=== PATIENT | female | born 1975 | race Caucasian/White ===

== ENCOUNTER 2023-08-03 12:30 | Outpatient (RCR) | payer OTHER, SELFPAY ==
--- NOTE | 2023-05-19 10:42 | OTOPEVAL1 ---
Assessment and note entered by Darío Dutta, OTR/Saida, CHT Evaluation Information Diagnosis Right lateral epicondylitis Subjective Information Patient reports gradual onset of right elbow pain since February 2023. She is right handed. 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 Reports difficulties with opening jars, carrying objects, lifting, or yoga. Reported Pain Level Pain Score - (R) elbow 2/10: At rest 8/10: At worst Assessment OT Clinical Summary Patient referred to OT with dx of right lateral epicondylitis. She presents today in a tennis elbow band and reports she received an injection a week ago. She presents with tenderness, pain, and weakness that is limiting return to UE use for ADLs and exercise. Skilled OT indicated to reduce pain and maximize functional right UE use via therapeutic exercise, manual therapy, modalities, and HEP instruction and progression. Plan of Care Interventions Therapeutic Exercise,Manual Therapy,Therapeutic Activities,Hot Pack/Cold Pack,Check Out for Orthotic/Pr,Ultrasound,Paraffin OT Services Indicated Yes Treatment Frequency and 1x/week for 4 weeks Duration These treatments will address the objective and functional deficits as defined above. The patient will be advanced safely and appropriately in order for the patient to progress towards his/her prior level of function. Additional exercises will be introduced and as well as a comprehensive home exercise program upon discharge, if needed, ?to ensure carryover of functional gains achieved in the clinic. This treatment plan has been reviewed and agreement upon by the patient.
--- NOTE | 2023-05-26 08:36 | PCOTNOTE ---
Patient's appointment yesterday, 05/25/23, was cancelled due to inclement weather.
--- NOTE | 2023-06-17 08:27 | OTOPEVAL1 ---
Assessment and note entered by Darío Dutta, JERMAN/Saida, CHT Progress Update 06/17/23 Assessment Status Progress Diagnosis Right lateral epicondylitis Subjective Information Patient reports reduced pain in the right elbow. States she no longer needs to wear the elbow brace during ADLs. States with light ADLs her pain is 0 /10. She has progressed to 2 lb. weights for wrist strengthening. She continues to modify her yoga routine. Overall progress with being able to open jars and carrying objects with less pain. Quickdash improved from 61.4% to 11.4% Reported Pain Level Pain Score 1/10 at rest 2/10 at worst Assessment OT Clinical Summary Patient referred to OT with dx of right lateral epicondylitis. She presents today for progress update after a month of therapy. Patient is making great progress. She no longer is wearing the elbow band and is using her arm for ADLs without pain. Continues to have pain with gripping the therapy putty. She continues to have tenderness at the elbow and common extensors. Continued skilled OT indicated to reduce pain and maximize functional right UE use via therapeutic exercise, manual therapy, modalities, and HEP instruction and progression. Plan of Care Interventions Therapeutic Exercise,Manual Therapy,Therapeutic Activities,Hot Pack/Cold Pack,Check Out for Orthotic/Pr,Ultrasound,Paraffin OT Services Indicated Yes Treatment Frequency and 1x/week for 3 visits Duration These treatments will address the objective and functional deficits as defined above. The patient will be advanced safely and appropriately in order for the patient to progress towards his/her prior level of function. Additional exercises will be introduced and as well as a comprehensive home exercise program upon discharge, if needed, ?to ensure carryover of functional gains achieved in the clinic. This treatment plan has been reviewed and agreement upon by the patient.
--- NOTE | 2023-07-09 10:21 | OTOPPROG ---
Assessment and note entered by Darío Dutta, JERMAN/Saida, CHT Progress Update 07/09/23 Assessment Status Progress Diagnosis Right lateral epicondylitis Subjective Information Patient reports fluctuating pain in the elbow. She was typically functioning with no pain during light tasks and lately it's been increased to 1/10 . 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 Overall she reports she is doing better, but the residual pain is limiting. Assessment OT Clinical Summary Patient referred to OT with dx of right lateral epicondylitis. She presents today with slight increase in elbow irritation after having a busy week last week, causing a flair up. Pain levels remain low, but she has had to scale back a little to wearing the brace more often. Overall she is making good progress. Continued skilled OT indicated to reduce pain and maximize functional right UE use via therapeutic exercise, manual therapy, modalities, and HEP instruction and progression. Plan of Care Interventions Therapeutic Exercise,Manual Therapy,Therapeutic Activities,Hot Pack/Cold Pack,Check Out for Orthotic/Pr,Ultrasound,Paraffin OT Services Indicated Yes Treatment Frequency and 1x/week for 3 visits Duration These treatments will address the objective and functional deficits as defined above. The patient will be advanced safely and appropriately in order for the patient to progress towards his/her prior level of function. Additional exercises will be introduced and as well as a comprehensive home exercise program upon discharge, if needed, ?to ensure carryover of functional gains achieved in the clinic. This treatment plan has been reviewed and agreement upon by the patient.
--- NOTE | 2023-07-09 10:21 | OPREHPOC ---
Outpatient Therapy Plan of Care This is a Multidisciplinary Plan of Care that may contain components documented by all disciplines (PT, OT, and ST.) OT Problem 1 OT Problem #1 Knowledge Deficit OT Goal 1 Goal 1. Patient to be independent with instructed materials. ---OT POC UPDATE 06/17/23--- 1. Met, continue as HEP is progressed ---OT POC UPDATE 07/09/23--- 1. Met, continues as HEP is progressed Target Visit 11 OT Problem 2 OT Problem #2 Pain OT Goal 1 Goal 1. Patient to report reduced pain in the right elbow, noting times of 0/10 pain. 2. Patient to be independent with non-medication pain management: - rest - heat/ice - ROM/stretching ---OT POC UPDATE 06/17/23--- 1. Met, progress to no pain with HEP 2. Met ---OT POC UPDATE 07/09/23--- 1. Flair up this week, continue to address pain 2. Met Target Visit 8 OT Problem 3 OT Problem #3 Impaired Strength OT Goal 1 Goal 1. Patient to improve functional strength as demonstrated by being able to complete wrist strengthening with 2 lb. free weight x20 reps without pain. ---OT POC UPDATE 06/17/23--- 1. Progressing, continue goal ---OT POC UPDATE 07/09/23--- 1. Progressing, continue goal Target Visit 11
--- NOTE | 2023-08-03 13:07 | OTOPDC ---
Assessment and note entered by Darío Dutta, OTR/L, CHT OT D/C Summary 08/03/23 Diagnosis Right lateral epicondylitis Subjective Information Patient reports progressing to no pain with light activities. Heavier tasks, such as gardening and scrubbing the shower, her pain increases to 2-3/10 . Overall her pain is reduced from 8/10 with ADLs. She reports good compliance with HEP and activity modifications. She has scaled back from wearing her tennis elbow brace at all time to just with heavier tasks sometimes . She has progressed to 5/5 wrist strength and is completing wrist strengthening HEP with 2 lb. free weights. 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 on the right. Left measuring 57 lbs. 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 Reported Pain Level Pain Score 0: Self Report Additional Pain Score Comments No pain at rest, this improved from having a constant 1/10 at rest. Pain at worst continues to get up to 3-4/10 with heavy tasks. Assessment OT Clinical Summary Patient referred to OT with dx of right lateral epicondylitis. She presents today reporting reduced pain to 0/10 at rest and with light ADLs. She continues to have pain with gripping tasks, but overall reports things are trending in the right direction. 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 She demonstrates excellent understanding of her HEP. Recommending continued compliance with HEP for optimal results. She verbalizes excellent understanding of all materials. D/C today with patient independent with HEP.
== END 2023-08-03 14:44 | disposition home or self-care (01) ==
LOC: ANHOT 12:30
PROVIDERS: PCP Family Medicine; Visit Provider Nurse Practitioner Family
DX: M77.11 Lateral epicondylitis, right elbow (principal)
CPT/HCPCS: 97018; 97035; 97110; 97140; 97165

== ENCOUNTER 2024-01-14 10:40 | Outpatient (CLI) | payer OTHER, SELFPAY ==
--- NOTE | ~2024-01-14 | US_ITS ---
EXAMINATION: US pelvic complete w TV DATE: 01/14/2024 11:02 INDICATION: Pelvic and perineal pain. TECHNIQUE: Multiple transabdominal and transvaginal sonographic images of the pelvis were obtained. COMPARISON: None. FINDINGS: TRANSABDOMINAL ULTRASOUND: The uterus measures 6.7 x 3.4 x 4.4 cm. There is no free fluid in the pelvis. TRANSVAGINAL ULTRASOUND: The endometrial complex measures 6 mm in thickness. The right ovary measures 3.2 x 3.0 x 1.8 cm. The left ovary measures 1.6 x 1.4 x 1.6 cm. There is normal vascular flow in the ovaries. IMPRESSION: 1. Normal pelvis. Reviewed, dictated and finalized at location A. IMPRESSION: 1. Normal pelvis.
== END 2024-01-14 10:41 | disposition home or self-care (01) ==
LOC: MICIMG 10:41
PROVIDERS: PCP Family Medicine; Visit Provider Nurse Practitioner Obstetrics & Gynecology
DX: R10.2 Pelvic and perineal pain (principal)
CPT/HCPCS: 76830; 76856

== ENCOUNTER 2024-06-28 07:05 | Outpatient (CLI) | payer OTHER, SELFPAY ==
--- NOTE | ~2024-06-28 | MR_ITS ---
EXAMINATION: MR elbow RT wo con DATE: 06/28/2024 07:36 INDICATION: Right elbow pain TECHNIQUE: Magnetic resonance imaging (MRI) of the right elbow was performed without intravenous cont rast. Sequences included coronal, axial, and sagittal PD-weighted FS FSE and coronal, axial, and sagi ttal PD-weighted FSE. COMPARISON: None FINDINGS: Osseous/other: Normal alignment. Normal marrow signal with no marrow edema, fracture, osteochondral lesion or abnor mal marrow replacing process. 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 Tendons: Triceps, biceps brachii and brachialis tendons are normal. Common flexor tendon wad is normal. Mild tendinopathy with small partial-thickness tear at the central lateral epicondylar origin of the commo n extensor tendon wad. The region of the tear measures approximately 4 mm cranial to caudal and 3 mm AP. Ligaments: The medial and lateral collateral ligament complexes are normal. Cubital tunnel: Cubital tunnel is unremarkable with normal signal and caliber of the ulnar nerve. Fluid: Physiologic amount of fluid the elbow joint. IMPRESSION: 1. Mild tendinopathy and small partial-thickness tear at the lateral epicondylar origin of the common extensor tendon wad. Reviewed, dictated and finalized at location B. 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 Mild tendinopathy and small partial-thickness tear at the lateral epicondyla r origin of the common extensor tendon wad.
== END 2024-06-28 07:06 | disposition home or self-care (01) ==
PROVIDERS: PCP Family Medicine; Visit Provider Nurse Practitioner Family
DX: M77.11 Lateral epicondylitis, right elbow (principal)
CPT/HCPCS: 73221

== ENCOUNTER 2024-08-31 08:00 | Outpatient (RCR) | payer OTHER, SELFPAY ==
--- NOTE | 2024-08-03 09:58 | OPREHPOC ---
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
--- NOTE | 2024-08-03 09:58 | PTOPEVAL1 ---
Assessment and note entered by Lizzie Waller, PT Evaluation Information Assessment Status Evaluation ICD-10 Condition Codes (PT) Pain in right elbow M25.521 Other ICD-10 Condition Codes ( M77.11 R elbow lateral epicondylitis PT) Onset Feb 2023 Subjective Information original onset of pain Feb 2023; had flare up in Mar 2024--started lifting weights for fitness and more pain; had MRI- small partial tear of lateral epicondyle saw ortho, have had 3 injections-- last one did not help pain going to try conservative and avoid surgery if able to using R wrist splint to decrease use of arm and it is helping; is R hand dominant previous OT treatment for this at initial injury- helped; is continuing to do the ice but not able to do the exercises due to more pain 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 She is not working due to elbow pain. DASH self assessment of 45% limitation in activity level. Decreased sleeping and activity level with her dominant arm due to pain. 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 Plan of Care Interventions Hot Pack/Cold Pack,Manual Therapy,Neuro Re- education,Patient/Caregiver Education,Therapeutic Activities,Therapeutic Exercise,Ultrasound,Other Other Interventions dry needling--pt agreed to it; kinesiotape PT Services Indicated Yes Treatment Frequency and 1-2x/wk for 5 visits Duration These treatments will address the objective and functional deficits as defined above. The patient will be advanced safely and appropriately in order for the patient to progress towards his/her prior level of function. Additional exercises will be introduced and as well as a comprehensive home exercise program upon discharge, if needed, ?to ensure carryover of functional gains achieved in the clinic. This treatment plan has been reviewed and agreement upon by the patient.
--- NOTE | 2024-08-31 08:54 | OPREHPOC ---
Outpatient Therapy Plan of Care This is a Multidisciplinary Plan of Care that may contain components documented by all disciplines (PT, OT, and ST.) PT Problem 1 PT Problem #1 Knowledge Deficit PT Goal 1 Goal / Goal Update *independent with HEP 08-31-24 d/c goal met Target Visit 5 Progress Met PT Problem 2 PT Problem #2 Pain PT Goal 1 Goal / Goal Update * pt report pain rating of 3/10 at worst 08-31-24 d/c goal not met, rating 5/10 at worst Target Visit 5 Progress Not Met PT Problem 3 PT Problem #3 Impaired Strength PT Goal 1 Goal / Goal Update increase strength of R UE to increase use of her dominant arm for home and self care activities : 1* 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
--- NOTE | 2024-08-31 08:56 | PTOPDC ---
Assessment and note entered by Lizzie Waller, PT Assessment Status Discharge ICD-10 Condition Codes (PT) Pain in right elbow M25.521 Other ICD-10 Condition Codes ( M77.11 R elbow lateral epicondylitis PT) Onset Feb 2023 Subjective Information therapy has helped a little, but still having pain ; have been doing the exercises, but have to be careful, if I do too much it hurts; have not really been doing much with my R arm to help it rest; the sleeve helps; Reported Pain Level Pain Score Self Report Additional Pain Score Comments pain range in the past week: 2-5/10; increase pain: use L arm decrease pain: rest, compression sleeve; ice, home stim unit;biofreeze cream; no longer use the wrist brace; sleep without awakening due to elbow pain; ultrasound and taping not really make a difference Assessment PT Clinical Summary Teri has received 5 PT sessions. 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 The goals were partially met. Discharge PT services. She is to continue to perform the HEP and monitor pain with activity. And to make a follow up appointment with They had discussed option for surgery at her last appointment. Plan of Care PT Services Indicated No
== END 2024-08-31 09:21 | disposition home or self-care (01) ==
LOC: ANHPT 08:00
PROVIDERS: PCP Family Medicine; Visit Provider Nurse Practitioner Family
DX: M77.11 Lateral epicondylitis, right elbow (principal)
CPT/HCPCS: 97035; 97110; 97140; 97161

== ENCOUNTER 2024-10-12 13:34 | Outpatient (CLI) | payer OTHER, SELFPAY ==
[2024-10-12 14:11] LABS: Basophils Percent Auto 0.6 % (0.2-1.2); Eosinophils Absolute Auto 0.1 K/mm3 (0-0.3); Eosinophils Percent Auto 1.3 % (0-4.4); Hemoglobin 12.4 g/dL (12.0-15.0); Immature Granulocyte Absolute 0.02 K/mm3 (0.00-0.031); Immature Granulocyte Percent A 0.4 % (0-0.5); Immature Reticulocyte Fraction 10.3 % (3.0-15.9); Lymphocytes Absolute Auto 2.29 K/mm3 (0.9-3.2); Lymphocytes Percent Auto 43.4 % (18.3-44.2); Mean Corpuscular HGB Conc 32.6 g/dl (32-36); Mean Corpuscular Hemoglobin 31.8 pg (26-34); Mean Corpuscular Volume 97.4 fl (80-100); Mean Platelet Volume 9.6 fl (7.4-10.4); Monocytes Absolute Auto 0.5 K/mm3 (0.1-0.6); Monocytes Percent Auto 9.3 % (2.6-8.5); Neutrophils Absolute Auto 2.4 K/mm3 (1.3-6.7); Platelet Count Result 280 k/mm3 (150-375); Red Cell Distribution Width 12.7 % (11.5-14.5); Reticulocyte Hemoglobin Conten 35.8 pg (28.2-36.6); Reticulocytes Absolute 0.06 10^6/uL (0.02-0.10); White Blood Count 5.3 K/mm3 (4.5-10.0)
[2024-10-12 15:22] LABS: Folic Acid > 20.0 ng/mL (2.76->20)
--- OUTSIDE RECORDS SUMMARY | 2024-10-12 15:51 | XMS_ITS | Clinical Summary ---
Author Organization [facility] Office Center Address [address] [place] [address] Care Team Providers Care Power Distribution Engineer Name Role Phone Sharyn Sanders DO Primary Care Provider + Saeid Mercado MD Unavailable [phone] Allergies No known active allergies Medications escitalopram (LEXAPRO) 10 mg tablet Take 1 tablet (10 mg total) by mouth daily 12/09/2018 Active valACYclovir (VALTREX) 1 gram tablet Take 2 tablets (2,000 mg total) by mouth 2 (two) times a day as needed 07/19/2012 Active fluticasone propionate (FLONASE) 50 mcg/actuation nasal spray SHAKE LIQUID AND USE 2 SPRAYS IN EACH NOSTRIL DAILY DIRECTED 2022 Active TESTOSTERONE TRANSDERM 03/03/2023 Active testosterone 12.5 mg/ 1.25 gram (1 %) gel in metered-dose pump Place on the skin Active Arazlo 0.045 % lotion 03/23/2023 Active progesterone (PROMETRIUM) 100 mg capsule Take 1 capsule (100 mg total) by mouth daily 02/20/2023 Active Active Problems Problem Noted Date Diagnosed Date 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 Orthopaedic Surgery [address] [place] [address] 12th [place] [address] [place] [address] Alma Santiago MD Right lateral epicondylitis (Primary Dx); Partial tear of common extensor tendon of right elbow; Right elbow pain 10/10/2024 8:11 AM CDT - 10/10/2024 11:59 PM CDT Hospital Encounter [facility] [address] [place] [address] Arrived Discharge Disposition: Discharge to home or self care 10/10/2024 8:00 AM CDT - 10/10/2024 11:59 PM CDT Hospital Encounter [facility]) [address] [place] [address] Right elbow pain Discharge Disposition: Discharge to home or self care 10/10/[address] [facility] Nephrology at [address] [place] [address] Luis Manuel Devries 10/10/2024 Telephone [facility] Orthopaedic Surgery [address] [place] [address] 2nd [address] [place] [address] Alma Santiago MD from Last 3 Months Medical History Medical History Date Comments Alport syndrome BARBI (generalized anxiety disorder) Family History Medical History Relation Name Comments Anxiety disorder Brother Colitis Brother Alport syndrome Father Cancer Maternal Grandfather Anxiety disorder Mother Colitis Mother Depression Mother Diabetes Mother Heart disease Mother Cancer Paternal Grandfather Alport syndrome Sister Panic disorder Sister Relation Name Status Comments Brother Father Maternal Grandfather Mother Paternal Grandfather Sister Social History Tobacco Use Types Packs/Day Years Used Date Smoking Tobacco: Never Smokeless Tobacco: Never Tobacco Cessation:Counseling Given: Not Answered Alcohol Use Standard Drinks/Week Comments Yes 0 (1 standard drink = 0.6 oz pur e alcohol) socially Comments Unknown Sex and Gender Information Value Date Recorded Sex Assigned at Not on file Legal Sex Female 7:15 PM CHIP MUCKER Gender Identity Female 03/07/2020 3:31 PM CHIP MUCKER Sexual Orientation Straight 03/07/2020 3: 31 PM CHIP MUCKER Obstetrics History Last Filed Vital Signs Vital Sign Reading Time Taken Comments Blood Pressure 114/70 04/17/2023 8:56 AM CHIP MUCKER Pulse 78 04/17/2023 8:56 AM CHIP MUCKER Temperature 36.2 C (97.1 F) 04/17/2023 8:56 AM CHIP MUCKER Respiratory Rate - - Oxygen Saturation - - Inhaled Oxygen Concentration - - Weight 62.1 kg (137 lb) 10/10/2024 11:49 AM CDT Height 157.5 cm (5' 2) 10/10/2024 11:49 AM CDT Body Mass Index 25.06 10/10/2024 11:49 AM CDT Plan of Treatment Health Maintenance Due Date Last Done Comments Cervical Cancer Screening 1975 Colon Cancer Screening-Colonoscopy 1975 Depression Screening 1975 Hepatitis C Screening 1975 Hepatitis B Screening 1993 Regular Well Visit/Exam 18-64 1993 DTaP/Tdap/Td Vaccine (2 - Td or Tdap) 01/31/2021 01/31/2011, 07/20/2000 Covid-19 Vaccine (3 - season) 2024 03/01/2021, 07/07/2020 Breast Cancer Screening-Mammogram 07/05/2024 07/06/2023, 07/06/2023, 06/04/2022, Additional history exists Influenza Vaccine (Season Ended) 2025 05/09/2022, 03/01/2021, 02/13/2020, Additional history exists Pneumococcal vaccine <65 Aged Out No longer eligible based on patient's age to complete this topic Procedures Procedure Name Priority Date/Time Associated Diagnosis Comments ALBUMIN CREATININE RATIO, URINE Routine 10/11/2024 9:01 AM CDT Hereditary nephropathy (Alport's) Asymptomatic microscopic hematuria MSK MR OUTSIDE REFERENCE Routine 10/10/2024 8:11 AM CDT XR ELBOW RIGHT 3 OR MORE VIEWS Schedule Routine, Read Routine (OP Routine) 10/10/2024 8:09 AM CDT Right elbow pain from Last 3 Months Results * Albumin Creatinine Ratio, Urine (10/11/2024 9:01 AM CDT) Creatinine, ur 36 20 - 275 mg/dL [facility] Microalbumin, ur 0.5 See Note: mg/dL [facility] Comment: Reference Range: Reference Range Not established Microalbumin/creat ratio 14 <30 mg/g creat [facility] Comment: The ADA defines abnormalities in albumin excretion as follows: Albuminuria Category Result (mg/g creatinine) Normal to Mildly increased <30 Moderately increased 30-299 Severely increased > OR = 300 The ADA recommends that at least two of three specimens collected within a 3-6 month period be abnormal before considering a patient to be within a diagnostic category. Urine 10/11/2024 9:01 AM CDT 10/11/2024 9:02 AM CDT us Seaid Mercado MD LAB URINE ORDERABLES Final Re sult Performing Organization Address [facility] Co de Phone Number [employer] [facility] [address] [place] [address] * MSK MR Outside Reference (10/10/2024 8:11 AM CDT) Impressions [facility]_P[facility] - 10/10/2024 8:11 AM CDT These images are for Reference purposes only and have not been reviewed by [facility] Radiology. There will be no report generated by a [facility] Radiologist. Narrative [facility] - 10/10/2024 8:11 AM CDT EXAMINATION: Images For Reference Purposes Only us Alma Santiago MD IMG MRI PROCEDURES Fi nal Result Performing Organization Address [facility] Co de Phone Number [facility] * XR Elbow Right 3 or More Views (10/10/2024 8:09 AM CDT) Anatomical Region Laterality Modality Upper Extremities, Elbow Right Compute d Radiography 10/10/2024 8:25 AM CDT Impressions 10/10/2024 8:25 AM CDT Normal right elbow radiographs. Electronically signed by: Lawrence Vasques M.D. Narrative 10/10/2024 8:25 AM CDT EXAMINATION: XR ELBOW RIGHT 3 OR MORE VIEWS HISTORY: Right elbow pain FINDINGS: 3 views of the right elbow were performed without prior comparison. Alignment of the elbow is normal. There is no elbow joint effusion. There is no acute fracture. Joint spaces are normal. Procedure Note Lawrence Vasques MD PhD - 10/10/2024 EXAMINATION: XR ELBOW RIGHT 3 OR MORE VIEWS HISTORY: Right elbow pain FINDINGS: 3 views of the right elbow were performed without prior comparison. Alignment of the elbow is normal. There is no elbow joint effusion. There is no acute fracture. Joint spaces are normal. IMPRESSION: Normal right elbow radiographs. Electronically signed by: Lawrence Vasques M.D. Alma Santiago MD IMG XR PROCEDURES Fin al Result from Last 3 Months Insurance [employer] Care Teams Power Distribution Engineer Relationship Specialty Start Date End Date Sharyn Sanders DO [facility] [facility] [address] [place] [address] PCP - General Family Medicine 08/31/24 Saeid Mercado MD [address] [facility] [address] [place] [address] Nephrology 10/10/24
--- OUTSIDE RECORDS SUMMARY | 2024-10-12 15:51 | XMS_ITS | Clinical Summary ---
Author Organization [facility] Address [address] [place] [address] Care Team Providers Care Machine Molder Squeeze Name Role Phone Stephanie Petersen Primary Care Provider [phone] Willie Tillman MD Unavailable [phone] Source Comments [facility],non-owned Affiliates and Associated Physician Practices is amultiple site organization consisting of ambulatory clinics and hospital sitesin [place], [place], [place] and [place]. This disclosure is being madepursuant to the Care Everywhere program and may not contain all information available regarding this patient. Last updated 18.[facility] Allergies No known active allergies Medications * Be aware that medications may not be up to date on this document. Alwaysverify current medications with the patient. spironolactone (ALDACTONE) 100 MG tablet Take 1 tablet by mouth once daily 03/22/2017 Active escitalopram (LEXAPRO) 10 MG tablet Take 1 tablet by mouth once daily 02/07/2017 Active Norethin Myron-Eth Estrad-FE (MINASTRIN 24 FE PO) Active Social History Tobacco Use Types Packs/Day Years Used Date Smoking Tobacco: Never Smokeless Tobacco: Never Comments Unknown Sex and Gender Information Value Date Recorded Sex Assigned at Not on file Legal Sex Female 9:26 AM SILK WEAVER Gender Identity Not on file Sexual Orientation Not on file Last Filed Vital Signs Vital Sign Reading Time Taken Comments Blood Pressure - - Pulse - - Temperature - - Respiratory Rate - - Oxygen Saturation - - Inhaled Oxygen Concentration - - Weight 54.4 kg (120 lb) 04/07/2017 2:08 PM SILK WEAVER Height 160 cm (5' 3) 04/07/2017 2:08 PM SILK WEAVER Body Mass Index 21.26 04/07/2017 2:08 PM SILK WEAVER Plan of Treatment Health Maintenance Due Date Last Done Comments COLOGUARD (AGES 45-75) - COL ON CA SCREENING 1975 COLON MONITORING 1975 COLONOSCOPY - COLON CA SCREENING 1975 CT COLONOGRAPHY - COLON CA SCREENING 1975 Colorectal Cancer Screening 1975 FIT - COLON CA SCREENING 1975 FLEX SIG - COLON CA SCREENING 1975 LIPID TESTING 1975 MAMMOGRAM 1975 HIV SCREENING 1990 HEPATITIS C SCREENING 03/19/1993 DTAP/TDAP/TD VACCINES (1 - Tdap) 1994 HEPATITIS B VACCINE (1 of 3 - 19+ 3-dose series) 1994 COVID-19 VACCINE ( - 2023-2 5 season) 2024 DEPRESSION SCREENING 05/04/2024 INFLUENZA VACCINE (Season Ended) 2025 ZOSTER VACCINE (1 of 2) 2025 HIB VACCINE Aged Out No longer eligi ble based on patient's age to complete this topic HPV VACCINE Aged Out No longer eligi ble based on patient's age to complete this topic MENINGOCOCCAL (Group B) VACC INE SHARED DECISION-MAKING Aged Out No longer eligibl e based on patient's age to complete this topic MENINGOCOCCAL GROUPS A/C/Y/W VACCINE Aged Out No longer eligible b ased on patient's age to complete this topic Insurance [employer] Care Teams Machine Molder Squeeze Relationship Specialty Start Date End Date Stephanie Petersen DO [address] [place] [address] PCP - General Family Medicine 04/07/17 [place] [address] [address] [address] Orthopedic Surgery 04/07/17
--- OUTSIDE RECORDS SUMMARY | 2024-10-12 15:51 | XMS_ITS | Encounter Summary ---
Author Organization [facility] Healthcare Address [address] [place] [address] Care Team Providers Care Director Digital Catalogue Name Role Phone Sharyn Sanders DO Primary Care Provider + Saeid Mercado MD Unavailable [phone] Reason for Visit * MRI/CAT/PET Scan (Routine) - Pending Review Specialty Diagnoses / Procedures Referred By Deena t Referred To Contact Procedures MSK MR Outside Reference Alma Santiago MD [address] [facility] [address]12A [place] [address] Phone: tel: fax: Referral ID Status Reason Start Date Expiration Date V isits Requested Visits Authorized [id number] Pending Review 10/10/2024 11/09/2025 1 1 Encounter Details Date Type Department Care Team (Latest Contact Info) Description 10/10/2024 8:11 AM CDT - 10/10/2024 11:59 PM CDT Hospital Encounter [facility] [address] [place] [address] Arrived Discharge Disposition: Discharge to home or self care Social History Tobacco Use Types Packs/Day Years Used Date Smoking Tobacco: Never Smokeless Tobacco: Never Alcohol Use Standard Drinks/Week Comments Yes 0 (1 standard drink = 0.6 oz pur e alcohol) socially Comments Unknown Sex and Gender Information Value Date Recorded Sex Assigned at Not on file Legal Sex Female 7:15 PM WAX PATTERN REPAIRER Gender Identity Female 03/07/2020 3:31 PM WAX PATTERN REPAIRER Sexual Orientation Straight 03/07/2020 3: 31 PM WAX PATTERN REPAIRER documented as of this encounter Medications at Time of Discharge Arazlo 0.045 % lotion 03/23/2023 escitalopram (LEXAPRO) 10 mg tablet Take 1 tablet (10 mg total) by mouth daily 12/09/2018 fluticasone propionate (FLONASE) 50 mcg/actuation nasal spray SHAKE LIQUID AND USE 2 SPRAYS IN EACH NOSTRIL DAILY DIRECTED 2022 progesterone (PROMETRIUM) 100 mg capsule Take 1 capsule (100 mg total) by mouth daily 02/20/2023 testosterone 12.5 mg/ 1.25 gram (1 %) gel in metered-dose pump Place on the skin TESTOSTERONE TRANSDERM 03/03/2023 valACYclovir (VALTREX) 1 gram tablet Take 2 tablets (2,000 mg total) by mouth 2 (two) times a day as needed 07/19/2012 documented as of this encounter Discharge Disposition Disposition Code Departure Means Destination Discharge to home or self care documented in this encounter Plan of Treatment Not on file documented as of this encounter Procedures Procedure Name Priority Date/Time Associated Diagnosis Comments MSK MR OUTSIDE REFERENCE Routine 10/10/2024 8:11 AM CDT documented in this encounter Results * MSK MR Outside Reference (10/10/2024 8:11 AM CDT) Impressions [facility] - 10/10/2024 8:11 AM CDT These images are for Reference purposes only and have not been reviewed by [facility] Radiology. There will be no report generated by a [facility] Radiologist. Narrative [facility] - 10/10/2024 8:11 AM CDT EXAMINATION: Images For Reference Purposes Only us Alma Santiago MD IMG MRI PROCEDURES Fi nal Result [facility] documented in this encounter Visit Diagnoses Not on filedocumented in this encounter Care Teams Director Digital Catalogue Relationship Specialty Start Date End Date Sharyn Sanders DO [address] [place] [address] [address] [place] [address] PCP - General Family Medicine 08/31/24 Saeid Mercado MD [address] [facility] [address] [place] [address] Nephrology 10/10/24 documented as of this encounter
--- OUTSIDE RECORDS SUMMARY | 2024-10-12 15:51 | XMS_ITS | Encounter Summary ---
Author Organization [facility] Healthcare Address [address] [place] [address] Care Team Providers Care Lime Sludge Mixer Name Role Phone Sharyn Sanders DO Primary Care Provider + Saeid Mercado MD Unavailable [phone] Reason for Referral * Diagnostic Imaging (Routine) - Closed Specialty Diagnoses / Procedures Referred By Contac t Referred To Contact Diagnoses Right elbow pain Procedures XR Elbow Right 3 or More Views Alma Santiago MD [address] [employer] [address] [place] [address] Phone: tel: fax: [address] [address] Referral ID Status Reason Start Date Expiration Date Visits Re quested Visits Authorized [id number] Closed 09/29/2024 10/29/2025 1 1 Reason for Visit * Diagnostic Imaging (Routine) - Closed Specialty Diagnoses / Procedures Referred By Contac t Referred To Contact Diagnoses Right elbow pain Procedures XR Elbow Right 3 or More Views Alma Santiago MD [address] [employer] [place] [address] Phone: tel: fax: [address] [address] Referral ID Status Reason Start Date Expiration Date Visits Re quested Visits Authorized [id number] Closed 09/29/2024 10/29/2025 1 1 Encounter Details Date Type Department Care Team (Latest Contact Info) Description 10/10/2024 8:00 AM CDT - 10/10/2024 11:59 PM CDT Hospital Encounter [facility] [address] [place] [address] Right elbow pain Discharge Disposition: Discharge to home or self care Social History Tobacco Use Types Packs/Day Years Used Date Smoking Tobacco: Never Smokeless Tobacco: Never Alcohol Use Standard Drinks/Week Comments Yes 0 (1 standard drink = 0.6 oz pur e alcohol) socially Comments Unknown Sex and Gender Information Value Date Recorded Sex Assigned at Not on file Legal Sex Female 7:15 PM COMPUTER PUBLISHER Gender Identity Female 03/07/2020 3:31 PM COMPUTER PUBLISHER Sexual Orientation Straight 03/07/2020 3: 31 PM COMPUTER PUBLISHER documented as of this encounter Medications at [...] Procedure Name Priority Date/Time Associated Diagnosis Comments XR ELBOW RIGHT 3 OR MORE VIEWS Schedule Routine, Read Routine (OP Routine) 10/10/2024 8:09 AM CDT Right elbow pain documented in this encounter Results * XR Elbow Right 3 or More [...] MD IMG XR PROCEDURES Fin al Result documented in this encounter Visit Diagnoses Diagnosis Right elbow pain Pain in joint, upper arm documented in this encounter Care Teams Lime Sludge Mixer Relationship Specialty Start Date End Date Sharyn Sanders DO [address] [facility] [address] [place] [address] PCP - General Family Medicine 08/31/24 Saeid Mercado MD [address] [facility] [address] [place] [address] Nephrology 10/10/24 documented as of this encounter
--- OUTSIDE RECORDS SUMMARY | 2024-10-12 15:51 | XMS_ITS | Referral Summary ---
Author Organization [facility] Address [address] [place] [address] Care Team Providers Care Semiconductor Packages Leak Tester Name Role Phone Sharyn Sanders DO Primary Care Provider + Saeid Mercado MD Unavailable [phone] Encounters Date Type Department Care Team Description 10/10/[address] [facility] Nephrology at [place] [address] [facility] [address] [place] [address] Luis Manuel Devries 10/10/2024 Telephone [facility] Orthopaedic Surgery [address] [facility] 2nd [address] [place] [address] Alma Santiago MD 10/10/2024 8:11 AM CDT - 10/10/2024 11:59 PM CDT Hospital Encounter [facility] [address] [place] [address] Arrived Discharge Disposition: Discharge to home or self care 10/10/2024 8:00 AM CDT - 10/10/2024 11:59 PM CDT Hospital Encounter [facility] [address] [place] [address] Right elbow pain Discharge Disposition: Discharge to home or self care 10/10/2024 8:15 AM CDT Office Visit [facility] Orthopaedic Surgery [address] [facility] 12th [place] [address] [place] [address] Alma Santiago MD Right lateral epicondylitis (Primary Dx); Partial tear of common extensor tendon of right elbow; Right elbow pain from Last 3 Months Allergies No known active allergies Medications escitalopram [...] nephropathy (Alport's) 03/04/2019 Asymptomatic microscopic hematuria 03/04/2019 Social History Tobacco Use Types Packs/Day Years Used Date Smoking Tobacco: Never Smokeless Tobacco: Never Tobacco Cessation:Counseling Given: Not Answered Alcohol Use Standard Drinks/Week Comments Yes 0 (1 standard drink = 0.6 oz pur e alcohol) socially Comments Unknown Sex and Gender Information Value Date Recorded Sex Assigned at Not on file Legal Sex Female 7:15 PM HEAD OF IT Gender Identity Female 03/07/2020 3:31 PM HEAD OF IT Sexual Orientation Straight 03/07/2020 3: 31 PM HEAD OF IT Last Filed Vital Signs Vital Sign Reading Time Taken Comments Blood Pressure 114/70 04/17/2023 8:56 AM HEAD OF IT Pulse 78 04/17/2023 8:56 AM HEAD OF IT Temperature 36.2 C (97.1 F) 04/17/2023 8:56 AM HEAD OF IT Respiratory Rate - - Oxygen Saturation - - Inhaled Oxygen Concentration - - Weight 62.1 kg (137 lb) 10/10/2024 11:49 AM CDT Height 157.5 cm (5' 2) 10/10/2024 11:49 AM CDT Body Mass Index 25.06 10/10/2024 11:49 AM CDT Plan of Treatment Not on file Procedures Procedure Name Priority Date/Time Associated Diagnosis [...] AM CDT 10/11/2024 9:02 AM CDT us Saeid Mercado MD LAB URINE ORDERABLES Final Re sult [facility] [address] [place] [address] * K MR Outside Reference (10/10/2024 8:11 AM CDT) Impressions [facility] - 10/10/2024 8:11 AM CDT These images are for Reference purposes only and have not been reviewed by [facility] Radiology. There will be no report generated by a [facility] Radiologist. Narrative [facility] - 10/10/2024 8:11 AM CDT EXAMINATION: Images For Reference Purposes Only Alma Santiago MD IMG MRI PROCEDURES Fi nal Result [facility] * XR Elbow Right 3 or [...] al Result from Last 3 Months Insurance [facility] CIG[employer] Care Teams Semiconductor Packages Leak Tester Relationship Specialty Start Date End Date Sharyn Sanders DO [address] [place] [address] [address] [place] [address] PCP - General Family Medicine 08/31/24 Saeid Mercado MD [address] [facility] [address] [place] [address] Nephrology 10/10/24
== END 2024-10-12 13:35 | disposition home or self-care (01) ==
LOC: ANHLAB 13:34
PROVIDERS: PCP Family Medicine; Visit Provider Family Medicine
DX: D75.89 Other specified diseases of blood and blood-forming organs (principal)
CPT/HCPCS: 36415; 82607; 82746; 85025; 85046